=== PATIENT | male | born 1960 | race Two or more races ===

== ENCOUNTER 2023-08-14 01:28 | Emergency (ER) | payer MEDICARE, MEDICAID ==
[~2023-08-14] VITALS: Ht 162.6 cm; Wt 100.0 kg
[~2023-08-14 01:28] MED LIST: CLOP75TA70 PO; GABAPOW36 PO; KEPPRA PO; LIS20T GT; LORAPOW30 PO; MIRT1TAB38 PO; SIMVPOW2 PO; VALPROIC ACID PO
[2023-08-14 03:05] LABS: Urine Bacteria FEW /hpf (None Seen); Urine Blood 2+ /uL (Negative); Urine Clarity CLOUDY (Clear); Urine Color Yellow (Yellow); Urine Mucus FEW (None Seen); Urine Protein, UAD 1+ (Negative); Urine Specific Gravity 1.014 (1.001-1.035); Urine Urobilinogen Normal (Negative); Urine WBC 28 /hpf (0 - 3); Urine pH 7.5 (5.0-8.0)
[2023-08-14 04:19] LABS: Basophils # (auto) 0 10 ^3/uL (0-0.2); Basophils % (auto) 0.6 % (0.0-2.0); Eosinophils # (auto) 0 10 ^3/uL (0-0.8); Eosinophils % (auto) 0.4 % (0.0-7.0); Hematocrit 38.8 % (41.0-53.0); Hemoglobin 12.6 g/dL (13.5-17.5); Lymphocytes # (auto) 2.5 10 ^3/uL (0.4-5.4); Lymphocytes % (auto) 41.5 % (10.0-50.0); Mean Corpuscular Hemoglobin 31.2 pg (28.0-32.0); Mean Corpuscular Hgb Conc. 32.5 g/dL (32.0-36.0); Mean Corpuscular Volume 95.8 fL (80.0-100.0); Monocytes # (auto) 0.4 10 ^3/uL (0-1.3); Monocytes % (auto) 7.4 % (0.0-12.0); Neutrophils % (auto) 50.1 % (37.0-80.0); Nucleated Red Blood Cells % 1.2 %; Red Blood Cells 4.05 10^6/uL (4.5-5.90)
[2023-08-14 04:24] LABS: Red Cell Distribution Width 22.1 % (11.8-14.3)
[2023-08-14 04:30] LABS: Chloride 104 mmol/L (98-107); Potassium 3.9 mmol/L (3.5-5.1); Sodium 133 mmol/L (136-145)
[2023-08-14 04:31] LABS: Anion Gap 3 (5-15); Carbon Dioxide 26 mmol/L (20-30)
[2023-08-14 04:32] LABS: Calcium 9.5 mg/dL (8.7-10.4)
[2023-08-14 04:36] LABS: BUN/Creatinine Ratio 10.9 (10.0-20.0); Blood Urea Nitrogen 15 mg/dL (9-23); Glucose 171 mg/dL (74-106)
[2023-08-14 05:21] VITALS: TEMP 98.4
[2023-08-14 05:23] VITALS: PULSE 80; RESP 15; O2SAT 93
[2023-08-14 06:43] VITALS: BP 165/70; PULSE 83; RESP 16; O2SAT 98
== END 2023-08-14 07:00 | disposition home or self-care (01) ==
LOC: ER 01:28
DX: R41.0 Disorientation, unspecified (principal); M79.89 Other specified soft tissue disorders; F17.210 Nicotine dependence, cigarettes, uncomplicated; E11.9 Type 2 diabetes mellitus without complications; E78.5 Hyperlipidemia, unspecified; I10 Essential (primary) hypertension; Z86.73 Personal history of transient ischemic attack (TIA), and cerebral infarction without residual deficits; Z90.49 Acquired absence of other specified parts of digestive tract
CPT/HCPCS: 36415; 70450; 80048; 81001; 82140; 85025

== ENCOUNTER 2024-03-04 10:08 | Inpatient (IN) | payer MEDICARE, MEDICAID ==
[~2024-03-04] VITALS: Ht 172.7 cm; Wt 87.0 kg
[2024-03-04 10:50] VITALS: PULSE 92; RESP 20
[2024-03-04 11:22] LABS: Alkaline Phosphatase 138 U/L (46-116); Anion Gap 1 (5-15); Aspartate Aminotransferase 15 U/L (13-40); BUN/Creatinine Ratio 13.2 (10.0-20.0); Bilirubin, Total 0.2 mg/dL (0.2-1.0); Blood Urea Nitrogen 20 mg/dL (9-23); Calcium 8.7 mg/dL (8.7-10.4); Carbon Dioxide 24 mmol/L (20-30); Chloride 106 mmol/L (98-107); Glucose 107 mg/dL (74-106); Lipase 39 U/L (12-53); Potassium 3.9 mmol/L (3.5-5.1); Sodium 131 mmol/L (136-145)
[2024-03-04 11:30] LABS: Urine Bacteria MANY /hpf (None Seen); Urine Blood Negative /uL (Negative); Urine Clarity Turbid (Clear); Urine Color Light-Yellow (Yellow); Urine Hyaline Cast MOD /lpf (0 - 2); Urine Mucus FEW (None Seen); Urine Protein, UAD 2+ (Negative); Urine Specific Gravity 1.028 (1.001-1.035); Urine Urobilinogen Normal (Negative); Urine WBC 88 /hpf (0 - 3); Urine pH 5.5 (5.0-9.0)
[2024-03-04 11:34] LABS: Total Protein 12.5 g/dL (5.7-8.2)
[2024-03-04 11:36] LABS: Hematocrit 21.7 % (41.0-53.0); Mean Corpuscular Hemoglobin 24.5 pg (28.0-32.0); Mean Corpuscular Hgb Conc. 30.2 g/dL (32.0-36.0); Mean Corpuscular Volume 81.2 fL (80.0-100.0); Platelet Count (auto) 338 10^3/uL (140-450); Red Blood Cells 2.67 10^6/uL (4.5-5.90)
[2024-03-04 11:38] LABS: Alanine Aminotransferase < 9 U/L (7-40)
[2024-03-04 11:41] LABS: Red Cell Distribution Width 22.9 % (11.8-14.3)
[2024-03-04 11:42] LABS: Hemoglobin 6.5 g/dL (13.5-17.5)
[2024-03-04 11:43] LABS: Band Neutrophils % (manual) 0; Basophils % (manual) 0 (0.0-2.0); Blast Cells 0; Metamyelocytes % 0; Myelocytes % 0; Promyelocytes % 0; Reactive Lymphocytes 0
[2024-03-04 12:05] LABS: Eosinophils % (manual) 4 (0-7); Lymphocytes % (manual) 36 (10.0-50.0); Monocytes % (manual) 3 (0-12); Platelet Estimate Adequate
[2024-03-04 12:06] LABS: Anisocytosis Slight; Hypochromia Moderate; Rouleau Present
[2024-03-04 12:14] LABS: COVID19 ANTIGEN SOFIA FIA NEGATIVE (NEGATIVE)
[2024-03-04] MEDS: cefTRIAXone 1GM/50ML D5W 50 ML IV ONE (12:36)
[2024-03-04] MEDS: ONDANSETRON HCL 4 MG/2 ML VIAL IV ONE ×2 (14:16→20:42)
[2024-03-04] MEDS: MORPHINE SULFATE 4 MG/ML SYR/VIAL IV ONE ×2 (14:17→20:42)
[2024-03-04 20:07] VITALS: O2SAT 100
[2024-03-04 21:55] VITALS: BP 108/64; PULSE 88; RESP 16; TEMP 97.8
[2024-03-04 22:20] VITALS: BP 110/61; PULSE 94; RESP 14; TEMP 98.2
[2024-03-04] MEDS ORDERED: ONDANSETRON HCL 4 MG/2 ML VIAL IV PRN (23:15)
[2024-03-04] MEDS ORDERED: DOCUSATE SOD 100 MG CAP PO PRN (23:15)
[2024-03-04] MEDS ORDERED: ACETAMINOPHEN 325 MG TAB PO PRN (23:15)
[2024-03-05] VITALS (7 sets, daily range): BP systolic 81–164; BP diastolic 36–80; PULSE 77–110; RESP 14–19; TEMP 97.9–98.7; O2SAT 97–98
[2024-03-05] MEDS: LACTATED RINGER'S 1,000 ML IV ONE (00:30)
[2024-03-05] MEDS: SODIUM CHLOR 0.9% PF (SALINE LOCK) 10ML VIAL/SYR IV SCH (05:36)
[2024-03-05 07:39] LABS: Basophils # (auto) 0 10 ^3/uL (0-0.2); Eosinophils # (auto) 0.1 10 ^3/uL (0-0.8); Hemoglobin 8.6 g/dL (13.5-17.5); Monocytes # (auto) 0.5 10 ^3/uL (0-1.3); Monocytes % (auto) 6.9 % (0.0-12.0)
[2024-03-05 07:42] LABS: Basophils % (auto) 0.6 % (0.0-2.0); Eosinophils % (auto) 1.5 % (0.0-7.0); Hematocrit 26.4 % (41.0-53.0); Lymphocytes # (auto) 1.9 10 ^3/uL (0.4-5.4); Lymphocytes % (auto) 26.1 % (10.0-50.0); Mean Corpuscular Hemoglobin 26.4 pg (28.0-32.0); Mean Corpuscular Hgb Conc. 32.7 g/dL (32.0-36.0); Mean Corpuscular Volume 80.8 fL (80.0-100.0); Neutrophils # (auto) 4.8 10 ^3/uL (1.6-8.6); Neutrophils % (auto) 64.9 % (37.0-80.0); Nucleated Red Blood Cells % 0.4 %; Platelet Count (auto) 285 10^3/uL (140-450); Red Blood Cells 3.27 10^6/uL (4.5-5.90); Red Cell Distribution Width 19.9 % (11.8-14.3); White Blood Cell 7.5 10^3/uL (4.4-10.8)
[2024-03-05] MEDS: HYDROcodone-ACET 5/325MG TAB PO PRN (07:42)
[2024-03-05 07:55] LABS: Alanine Aminotransferase 10 U/L (7-40); Albumin 2.9 g/dL (3.2-4.8); Alkaline Phosphatase 135 U/L (46-116); Anion Gap 1 (5-15); Aspartate Aminotransferase 20 U/L (13-40); BUN/Creatinine Ratio 13.2 (10.0-20.0); Bilirubin, Total 0.2 mg/dL (0.2-1.0); Blood Urea Nitrogen 19 mg/dL (9-23); Calcium 8.6 mg/dL (8.7-10.4); Carbon Dioxide 24 mmol/L (20-30); Chloride 108 mmol/L (98-107); Glucose 109 mg/dL (74-106); Potassium 4.3 mmol/L (3.5-5.1); Sodium 133 mmol/L (136-145)
[2024-03-05 08:07] LABS: Total Protein 11.8 g/dL (5.7-8.2)
[2024-03-05] MEDS ORDERED: ENOXAPARIN SOD 40 MG/0.4 ML SYRINGE SC SCH (10:00)
[2024-03-05 10:39] LABS: % Iron Saturation 417.4 % (20-55)
[2024-03-05] MEDS: HYDROmorphone HCL 2 MG/ML VL/or syr IV PRN (11:25)
[2024-03-05] MEDS: cefTRIAXone 1GM/50ML D5W 50 ML IV ONE (12:49)
[2024-03-05] MEDS: LORazepam 2MG/ML-1ML VIAL IV SCH (14:22)
[2024-03-05] MEDS: levETIRAcetam 1000 mg/100ml 100 ML IV ONE (17:55)
[2024-03-05] MEDS: HALOPERIDOL LACTATE 5 MG/ML INJ VIAL IM ONE (19:45)
[2024-03-05] MEDS: LACTULOSE 20Gm/30ML SOLN PO ONE (21:09)
[2024-03-05] MEDS: LACTULOSE 20Gm/30ML SOLN PO SCH (22:00)
[2024-03-05 22:31] LABS: INR 1.34 (0.9-1.15); Partial Thromboplastin Time 26.8 SEC (24.5-34.5); Prothrombin Time 13.9 sec (9.3-11.8)
[2024-03-05] MEDS: FUROSEMIDE 20 MG/2 ML VIAL IV ONE (23:02)
[2024-03-05 23:45] LABS: Creatinine, Urine 143.37 mg/dL (30.0-125.0)
[2024-03-05 23:46] LABS: Amphetamine Screen, Urine Neg (NEGATIVE); Barbiturate Scree,Urine Neg (NEGATIVE); Benzodiazephine Screen, Urine Neg (NEGATIVE); Cannabinoid Screen, Urine Neg (NEGATIVE); Cocaine Screen, Urine Neg (NEGATIVE); Opiate Scree,Urine Pos (NEGATIVE); Phencyclidine Screen, Urine Neg (NEGATIVE)
[2024-03-05] MEDS: LORazepam 2MG/ML-1ML VIAL IV PRN (23:56)
[2024-03-06 00:41] VITALS: BP 164/80; PULSE 110; RESP 19; TEMP 98.1; O2SAT 97
[2024-03-06] MEDS ORDERED: CIPR500T4 PO (02:59)
[2024-03-06] MEDS ORDERED: PANT40TA2 PO (02:59)
[2024-03-06] MEDS ORDERED: LISI20TA56 PO (02:59)
[2024-03-06] MEDS ORDERED: LEVE500T3 PO (02:59)
[2024-03-06] MEDS ORDERED: INSU1INJ19 SC (02:59)
[2024-03-06] MEDS ORDERED: SUCR1TAB31 PO (02:59)
[2024-03-06] MEDS ORDERED: DIVA500T13 PO (02:59)
[2024-03-06] MEDS ORDERED: CEPH500C PO (02:59)
[2024-03-06] MEDS ORDERED: TAMS0.4C39 PO (02:59)
[2024-03-06] MEDS ORDERED: ATOR-507 PO (02:59)
[2024-03-06] MEDS ORDERED: GABA-1250 PO (02:59)
[2024-03-06] MEDS ORDERED: MIRT1TAB16 PO (02:59)
[2024-03-06] MEDS ORDERED: DOCU-265 PO (02:59)
[2024-03-06] MEDS ORDERED: LORA-1123 PO (02:59)
[2024-03-06 05:00] VITALS: BP 158/85; PULSE 119; RESP 19; TEMP 98.5; O2SAT 96
[2024-03-06] MEDS: PANTOPRAZOLE 40 MG TAB PO SCH (05:30)
[2024-03-06 06:49] LABS: Eosinophils # (auto) 0.1 10 ^3/uL (0-0.8); Hemoglobin 8.7 g/dL (13.5-17.5)
[2024-03-06 06:53] LABS: Basophils # (auto) 0.1 10 ^3/uL (0-0.2); Basophils % (auto) 0.8 % (0.0-2.0); Eosinophils % (auto) 1.5 % (0.0-7.0); Hematocrit 26.3 % (41.0-53.0); Lymphocytes # (auto) 1.7 10 ^3/uL (0.4-5.4); Lymphocytes % (auto) 20.6 % (10.0-50.0); Mean Corpuscular Hemoglobin 26.3 pg (28.0-32.0); Mean Corpuscular Hgb Conc. 32.9 g/dL (32.0-36.0); Mean Corpuscular Volume 79.9 fL (80.0-100.0); Monocytes # (auto) 0.5 10 ^3/uL (0-1.3); Monocytes % (auto) 6.5 % (0.0-12.0); Neutrophils # (auto) 5.8 10 ^3/uL (1.6-8.6); Neutrophils % (auto) 70.6 % (37.0-80.0); Nucleated Red Blood Cells % 0.5 %; Platelet Count (auto) 308 10^3/uL (140-450); White Blood Cell 8.3 10^3/uL (4.4-10.8)
[2024-03-06 06:56] LABS: Red Cell Distribution Width 20.2 % (11.8-14.3)
[2024-03-06 08:00] VITALS: PULSE 109; PULSE 96; RESP 19; O2SAT 96
[2024-03-06] MEDS: FUROSEMIDE 20 MG/2 ML VIAL IV SCH (08:47)
[2024-03-06] MEDS: cefTRIAXone 1GM/50ML D5W 50 ML IV SCH (08:47)
[2024-03-06 09:00] VITALS: BP 131/75; PULSE 109; RESP 19; TEMP 98.6; O2SAT 96
[2024-03-06] MEDS: levETIRAcetam 1000 mg/100ml 100 ML IV SCH (09:06)
[2024-03-06] MEDS ORDERED: LACTULOSE 20Gm/30ML SOLN PO PRN (10:00)
[2024-03-06] MEDS: HALOPERIDOL LACTATE 5 MG/ML INJ VIAL IM PRN (13:28)
[2024-03-06 15:24] LABS: Alanine Aminotransferase 12 U/L (7-40); Albumin 3.1 g/dL (3.2-4.8); Alkaline Phosphatase 156 U/L (46-116); Anion Gap 5 (5-15); Aspartate Aminotransferase 25 U/L (13-40); BUN/Creatinine Ratio 8.8 (10.0-20.0); Blood Urea Nitrogen 13 mg/dL (9-23); Calcium 9.3 mg/dL (8.7-10.4); Carbon Dioxide 22 mmol/L (20-30); Chloride 103 mmol/L (98-107); Glucose 178 mg/dL (74-106); Magnesium 1.6 mg/dL (1.6-2.6); Potassium 3.6 mmol/L (3.5-5.1); Sodium 130 mmol/L (136-145)
[2024-03-06 15:25] LABS: Bilirubin, Total 0.2 mg/dL (0.2-1.0); Total Protein > 12.0 g/dL (5.7-8.2)
[2024-03-06 16:00] VITALS: BP 150/78; PULSE 96; RESP 22; TEMP 98.5; O2SAT 100
[2024-03-06 20:00] VITALS: PULSE 104
[2024-03-06] MEDS: DexAMETHasone SOD PHOS 4 MG/1ML SDV INJ IV SCH (22:12)
[2024-03-07] VITALS (8 sets, daily range): BP systolic 118–178; BP diastolic 66–88; PULSE 96–121; RESP 18–24; TEMP 97.7–98.7; O2SAT 97–100
[2024-03-07] MEDS: hydrALAZINE HCL 20 MG/ML VL IV ONE (05:40)
[2024-03-07] MEDS: LACTULOSE 10g/15ml SOLN 473ML PR SCH (06:00)
[2024-03-07 08:01] LABS: Basophils # (auto) 0 10 ^3/uL (0-0.2); Basophils % (auto) 0.3 % (0.0-2.0); Eosinophils # (auto) 0 10 ^3/uL (0-0.8); Hemoglobin 9.3 g/dL (13.5-17.5); Lymphocytes # (auto) 1.1 10 ^3/uL (0.4-5.4); Lymphocytes % (auto) 11.9 % (10.0-50.0); Mean Corpuscular Hemoglobin 26.7 pg (28.0-32.0); Mean Corpuscular Hgb Conc. 33.3 g/dL (32.0-36.0); Mean Corpuscular Volume 80.4 fL (80.0-100.0); Monocytes # (auto) 0.2 10 ^3/uL (0-1.3); Monocytes % (auto) 2.7 % (0.0-12.0); Neutrophils # (auto) 7.6 10 ^3/uL (1.6-8.6); Neutrophils % (auto) 85.1 % (37.0-80.0); Nucleated Red Blood Cells % 0.3 %; Platelet Count (auto) 293 10^3/uL (140-450); Red Blood Cells 3.48 10^6/uL (4.5-5.90); Red Cell Distribution Width 20.1 % (11.8-14.3); White Blood Cell 8.9 10^3/uL (4.4-10.8)
[2024-03-07 08:16] LABS: Alanine Aminotransferase 19 U/L (7-40); Albumin 3.1 g/dL (3.2-4.8); Alkaline Phosphatase 185 U/L (46-116); Anion Gap 5 (5-15); Aspartate Aminotransferase 39 U/L (13-40); BUN/Creatinine Ratio 12.1 (10.0-20.0); Blood Urea Nitrogen 16 mg/dL (9-23); Calcium 9.2 mg/dL (8.7-10.4); Carbon Dioxide 22 mmol/L (20-30); Chloride 104 mmol/L (98-107); Glucose 128 mg/dL (74-106); Sodium 131 mmol/L (136-145)
[2024-03-07 08:17] LABS: Bilirubin, Total 0.2 mg/dL (0.2-1.0)
[2024-03-07 08:31] LABS: Total Protein 13.4 g/dL (5.7-8.2)
[2024-03-07] MEDS: HALOPERIDOL LACTATE 5 MG/ML INJ VIAL IM PRN (12:19)
[2024-03-07] MEDS: IOHEXOL 350 MG/ML 100ML IJ ONE (14:56)
[2024-03-08] VITALS (8 sets, daily range): BP systolic 124–183; BP diastolic 73–110; PULSE 82–111; RESP 17–20; TEMP 97.5–98.6; O2SAT 95–100
[2024-03-08 07:45] LABS: Creatinine, Urine 230.59 mg/dL (30.0-125.0); Urine Bacteria FEW /hpf (None Seen); Urine Blood 3+ /uL (Negative); Urine Budding Yeast OCCASIONAL /hpf (None Seen); Urine Clarity Turbid (Clear); Urine Color Yellow (Yellow); Urine Mucus FEW (None Seen); Urine Protein, UAD 3+ (Negative); Urine Urobilinogen Normal (Negative); Urine WBC 9 /hpf (0 - 3); Urine pH 5.5 (5.0-9.0)
[2024-03-08 07:48] LABS: Protein, Urine 1598.7 mg/dL (0.0-11.9); Urine Protein/Creatinine Ratio 6.93
[2024-03-08 07:50] LABS: Urine Specific Gravity > 1.050 (1.001-1.035)
[2024-03-08 09:45] LABS: Hepatitis B Surface Antigen Negative (Negative)
[2024-03-08 10:07] LABS: Hepatitis B Core IgM Negative
[2024-03-08 10:13] LABS: Hepatitis B Surface Antigen Negative (Negative)
[2024-03-08 10:32] LABS: Basophils # (auto) 0 10 ^3/uL (0-0.2); Basophils % (auto) 0.1 % (0.0-2.0); Eosinophils # (auto) 0 10 ^3/uL (0-0.8); Lymphocytes # (auto) 0.8 10 ^3/uL (0.4-5.4); Monocytes # (auto) 0.5 10 ^3/uL (0-1.3)
[2024-03-08 10:34] LABS: Hepatitis C Antibody Negative (Negative)
[2024-03-08 10:34] LABS: Hemoglobin 8.9 g/dL (13.5-17.5); Lymphocytes % (auto) 7.9 % (10.0-50.0); Mean Corpuscular Hemoglobin 26.4 pg (28.0-32.0); Mean Corpuscular Hgb Conc. 32.9 g/dL (32.0-36.0); Mean Corpuscular Volume 80.2 fL (80.0-100.0); Monocytes % (auto) 4.2 % (0.0-12.0); Neutrophils # (auto) 9.4 10 ^3/uL (1.6-8.6); Neutrophils % (auto) 87.8 % (37.0-80.0); Nucleated Red Blood Cells % 0.3 %; Platelet Count (auto) 305 10^3/uL (140-450); Red Blood Cells 3.37 10^6/uL (4.5-5.90); White Blood Cell 10.7 10^3/uL (4.4-10.8)
[2024-03-08 10:36] LABS: Red Cell Distribution Width 20.1 % (11.8-14.3)
[2024-03-08 10:37] LABS: Alanine Aminotransferase 25 U/L (7-40); Albumin 3.1 g/dL (3.2-4.8); Alkaline Phosphatase 167 U/L (46-116); Anion Gap 2 (5-15); Aspartate Aminotransferase 39 U/L (13-40); Blood Urea Nitrogen 22 mg/dL (9-23); Calcium 9.6 mg/dL (8.7-10.4); Carbon Dioxide 23 mmol/L (20-30); Chloride 108 mmol/L (98-107); Glucose 191 mg/dL (74-106); Potassium 3.3 mmol/L (3.5-5.1); Sodium 133 mmol/L (136-145)
[2024-03-08 10:49] LABS: Total Protein 13.6 g/dL (5.7-8.2)
[2024-03-08 10:55] LABS: Bilirubin, Total < 0.2 mg/dL (0.2-1.0)
[2024-03-08] MEDS: POTASSIUM CHL 20MEQ/100ML 100 ML IV SCH (16:25)
[2024-03-08] MEDS: OCTREOTIDE ACETATE 100 MCG/ML VL SUBCUT SCH (22:26)
[2024-03-09] VITALS (9 sets, daily range): BP systolic 122–192; BP diastolic 62–110; PULSE 70–91; RESP 16–20; TEMP 97.4–98.6; O2SAT 93–97
[2024-03-09 08:06] LABS: Immunoglobulin A 50 mg/dL (61-437); Immunoglobulin G, Serum 11694 mg/dL (603-1613); Immunoglobulin M 24 mg/dL (20-172)
[2024-03-09 10:28] LABS: Basophils # (auto) 0 10 ^3/uL (0-0.2); Eosinophils # (auto) 0 10 ^3/uL (0-0.8); Monocytes # (auto) 0.5 10 ^3/uL (0-1.3); White Blood Cell 6.9 10^3/uL (4.4-10.8)
[2024-03-09 10:31] LABS: Basophils % (auto) 0.2 % (0.0-2.0); Hemoglobin 8.4 g/dL (13.5-17.5); Lymphocytes # (auto) 0.9 10 ^3/uL (0.4-5.4); Lymphocytes % (auto) 12.9 % (10.0-50.0); Mean Corpuscular Hemoglobin 26.4 pg (28.0-32.0); Mean Corpuscular Hgb Conc. 32.1 g/dL (32.0-36.0); Mean Corpuscular Volume 82.3 fL (80.0-100.0); Monocytes % (auto) 6.9 % (0.0-12.0); Neutrophils # (auto) 5.5 10 ^3/uL (1.6-8.6); Platelet Count (auto) 286 10^3/uL (140-450); Red Blood Cells 3.16 10^6/uL (4.5-5.90); Red Cell Distribution Width 20.9 % (11.8-14.3)
[2024-03-09] MEDS: PANTOPRAZOLE 40 MG/10 ML VIAL INJ IV SCH (11:11)
[2024-03-09] MEDS: NICOTINE 21MG/24 HR TOPICAL PATCH TD ONE (13:15)
[2024-03-09 13:30] LABS: Alanine Aminotransferase 23 U/L (7-40); Albumin 3.1 g/dL (3.2-4.8); Alkaline Phosphatase 147 U/L (46-116); Anion Gap 3 (5-15); Aspartate Aminotransferase 26 U/L (13-40); BUN/Creatinine Ratio 11.9 (10.0-20.0); Calcium 8.9 mg/dL (8.7-10.4); Carbon Dioxide 22 mmol/L (20-30); Chloride 114 mmol/L (98-107); Glucose 211 mg/dL (74-106); Potassium 3.8 mmol/L (3.5-5.1); Sodium 139 mmol/L (136-145)
[2024-03-09 13:31] LABS: Bilirubin, Total < 0.2 mg/dL (0.2-1.0)
[2024-03-09 13:32] LABS: Blood Urea Nitrogen 36 mg/dL (9-23)
[2024-03-09] MEDS: LACTULOSE 20Gm/30ML SOLN PO SCH (14:00)
[2024-03-09 14:06] LABS: Kappa Lite Chain Free Serum 11.8 mg/L (3.3-19.4)
[2024-03-09] MEDS: cloNIDine HCL 0.1 MG TAB PO PRN (15:09)
[2024-03-09 16:06] LABS: Albumin 3.1 g/dL (2.9-4.4); Alpha-1-Globulin 0.5 g/dL (0.0-0.4); Alpha-2-Globulin 1.1 g/dL (0.4-1.0); Gamma Globulin 7.3 g/dL (0.4-1.8); Globulin Total 10.3 g/dL (2.2-3.9); Protein Total Serum 13.4 g/dL (6.0-8.5)
[2024-03-09] MEDS ORDERED: CLINIMIX PER PHARMACY 0 ML IV SCH (21:15)
[2024-03-09] MEDS: AMINO ACID INFUSION IN D10W 1,000 ML IV ONE (22:23)
[2024-03-10] VITALS (8 sets, daily range): BP systolic 136–175; BP diastolic 72–84; PULSE 64–75; RESP 16–22; TEMP 97.7–98.3; O2SAT 94–98
[2024-03-10 06:54] LABS: Urine Bacteria None Seen /hpf (None Seen)
[2024-03-10 07:15] LABS: Alanine Aminotransferase 17 U/L (7-40); Alkaline Phosphatase 130 U/L (46-116); Anion Gap 5 (5-15); BUN/Creatinine Ratio 14.7 (10.0-20.0); Calcium 8.7 mg/dL (8.7-10.4); Carbon Dioxide 21 mmol/L (20-30); Chloride 112 mmol/L (98-107); Glucose 160 mg/dL (74-106); Magnesium 2.1 mg/dL (1.6-2.6); Potassium 3.8 mmol/L (3.5-5.1); Sodium 138 mmol/L (136-145)
[2024-03-10 07:16] LABS: Aspartate Aminotransferase 20 U/L (13-40); Phosphorus 4.9 mg/dL (2.4-5.1)
[2024-03-10 07:17] LABS: Bilirubin, Total < 0.2 mg/dL (0.2-1.0)
[2024-03-10 07:27] LABS: Blood Urea Nitrogen 46 mg/dL (9-23)
[2024-03-10 07:29] LABS: Total Protein 13.1 g/dL (5.7-8.2)
[2024-03-10 08:13] LABS: Urine Blood 2+ /uL (Negative); Urine Clarity Turbid (Clear); Urine Color Light-Yellow (Yellow); Urine Protein, UAD 2+ (Negative); Urine Specific Gravity 1.027 (1.001-1.035); Urine Urobilinogen Normal (Negative); Urine WBC 13 /hpf (0 - 3); Urine pH 5.5 (5.0-9.0)
[2024-03-10 08:41] LABS: Creatinine, Urine 142.29 mg/dL (30.0-125.0)
[2024-03-10 08:50] LABS: Triglycerides 65 mg/dL (< 150)
[2024-03-10] MEDS ORDERED: DEXTROSE (50%) 50ML SYRG IV SCH (10:00)
[2024-03-10] MEDS: NICOTINE 21MG/24 HR TOPICAL PATCH TD SCH (10:00)
[2024-03-10] MEDS: ACCU-CHEK COMFORT CURVE STRIP VI SCH (12:31)
[2024-03-10] MEDS: InsuLIN REG 1unit/0.01ml Soln (100units/ml) SC SCH (13:23)
[2024-03-10] MEDS: AMINO ACID INFUSION IN D10W 1,000 ML IV SCH (21:36)
[2024-03-11] VITALS (7 sets, daily range): BP systolic 120–188; BP diastolic 67–84; PULSE 63–71; RESP 18–20; TEMP 97.2–98.4; O2SAT 96–98
[2024-03-11 05:26] LABS: Alanine Aminotransferase 22 U/L (7-40); Albumin 2.9 g/dL (3.2-4.8); Alkaline Phosphatase 117 U/L (46-116); Anion Gap 4 (5-15); Aspartate Aminotransferase 33 U/L (13-40); BUN/Creatinine Ratio 16.2 (10.0-20.0); Blood Urea Nitrogen 43 mg/dL (9-23); Calcium 8.7 mg/dL (8.7-10.4); Carbon Dioxide 20 mmol/L (20-30); Chloride 111 mmol/L (98-107); Glucose 136 mg/dL (74-106); Magnesium 1.9 mg/dL (1.6-2.6); Potassium 4.5 mmol/L (3.5-5.1); Sodium 135 mmol/L (136-145)
[2024-03-11 05:27] LABS: Bilirubin, Total < 0.2 mg/dL (0.2-1.0); Phosphorus 3.7 mg/dL (2.4-5.1)
[2024-03-11 06:02] LABS: Total Protein 12.8 g/dL (5.7-8.2)
[2024-03-11] MEDS ORDERED: HYDROcodone-ACET 5/325MG TAB PO PRN (12:45)
[2024-03-11] MEDS: hydrALAZINE HCL 20 MG/ML VL IV PRN (17:07)
[2024-03-12] VITALS (10 sets, daily range): BP systolic 132–197; BP diastolic 73–100; PULSE 60–80; RESP 17–19; TEMP 97.1–98.5; O2SAT 95–100
[2024-03-12] MEDS ORDERED: ALBUMIN 5% IV SCH (15:00)
[2024-03-12] MEDS: LIDOCAINE 2%HCL (LOCAL ANESTH.) INJ 20ML MDV ONE (15:34)
[2024-03-12 15:42] LABS: Alanine Aminotransferase 21 U/L (7-40); Albumin 2.9 g/dL (3.2-4.8); Alkaline Phosphatase 110 U/L (46-116); Anion Gap 1 (5-15); Aspartate Aminotransferase 28 U/L (13-40); BUN/Creatinine Ratio 21.5 (10.0-20.0); Blood Urea Nitrogen 37 mg/dL (9-23); Calcium 8.8 mg/dL (8.7-10.4); Carbon Dioxide 20 mmol/L (20-30); Chloride 107 mmol/L (98-107); Glucose 204 mg/dL (74-106); Potassium 3.8 mmol/L (3.5-5.1)
[2024-03-12 15:43] LABS: Bilirubin, Total < 0.2 mg/dL (0.2-1.0); Total Protein > 12.0 g/dL (5.7-8.2)
[2024-03-12 15:45] LABS: Sodium 128 mmol/L (136-145)
[2024-03-12] MEDS: HEPARIN SODIUM (PORCINE) 5000 UNITS/ML 1ML VIAL ONE (16:09)
[2024-03-12 16:44] LABS: Magnesium 1.6 mg/dL (1.6-2.6)
[2024-03-12 16:46] LABS: Phosphorus 2.9 mg/dL (2.4-5.1)
[2024-03-12] MEDS: CALCIUM GLUC 1,000mg/50ml-NS 50 ML IV SCH (17:17)
[2024-03-13] VITALS (8 sets, daily range): BP systolic 126–178; BP diastolic 61–92; PULSE 68–96; RESP 17–23; TEMP 97.7–98.9; O2SAT 96–99
[2024-03-13 06:49] LABS: Basophils # (auto) 0 10 ^3/uL (0-0.2); Eosinophils # (auto) 0 10 ^3/uL (0-0.8)
[2024-03-13 06:54] LABS: Basophils % (auto) 0.2 % (0.0-2.0); Hematocrit 26.1 % (41.0-53.0); Hemoglobin 8.4 g/dL (13.5-17.5); Lymphocytes # (auto) 1.7 10 ^3/uL (0.4-5.4); Lymphocytes % (auto) 16.2 % (10.0-50.0); Mean Corpuscular Hemoglobin 25.6 pg (28.0-32.0); Mean Corpuscular Hgb Conc. 32.2 g/dL (32.0-36.0); Mean Corpuscular Volume 79.7 fL (80.0-100.0); Monocytes # (auto) 0.4 10 ^3/uL (0-1.3); Monocytes % (auto) 4.3 % (0.0-12.0); Neutrophils # (auto) 8.2 10 ^3/uL (1.6-8.6); Neutrophils % (auto) 79.3 % (37.0-80.0); Nucleated Red Blood Cells % 0.4 %; Platelet Count (auto) 234 10^3/uL (140-450); Red Blood Cells 3.27 10^6/uL (4.5-5.90); Red Cell Distribution Width 20.2 % (11.8-14.3); White Blood Cell 10.3 10^3/uL (4.4-10.8)
[2024-03-13 07:01] LABS: Alanine Aminotransferase 26 U/L (7-40); Alkaline Phosphatase 118 U/L (46-116); Anion Gap 3 (5-15); Aspartate Aminotransferase 30 U/L (13-40); BUN/Creatinine Ratio 24.8 (10.0-20.0); Blood Urea Nitrogen 37 mg/dL (9-23); Carbon Dioxide 20 mmol/L (20-30); Chloride 106 mmol/L (98-107); GFR African American 61 mL/min; GFR Non-African American 50 mL/min; Glucose 179 mg/dL (74-106); Magnesium 1.4 mg/dL (1.6-2.6); Phosphorus 3.7 mg/dL (2.4-5.1); Potassium 3.9 mmol/L (3.5-5.1); Sodium 129 mmol/L (136-145)
[2024-03-13 07:02] LABS: Bilirubin, Total < 0.2 mg/dL (0.2-1.0); Total Protein > 12.0 g/dL (5.7-8.2)
[2024-03-13 07:36] LABS: COVID19 ANTIGEN SOFIA FIA NEGATIVE (NEGATIVE)
[2024-03-13] MEDS: MAGNESIUM SULFATE 1GM/100ML 100 ML IV SCH (12:48)
[2024-03-13 14:06] LABS: Viscosity Serum 5.2 rel.saline (1.4-2.1)
[2024-03-13] MEDS: ALBUMIN 5% IV SCH (17:00)
[2024-03-13] MEDS: CALCIUM GLUC 1,000mg/50ml-NS 50 ML IV SCH (18:00)
[2024-03-14] VITALS (8 sets, daily range): BP systolic 127–158; BP diastolic 56–75; PULSE 71–84; RESP 16–19; TEMP 96.8–97.9; O2SAT 95–99
[2024-03-14 07:14] LABS: Alanine Aminotransferase 16 U/L (7-40); Albumin 3.6 g/dL (3.2-4.8); Alkaline Phosphatase 69 U/L (46-116); Anion Gap 4 (5-15); Aspartate Aminotransferase 10 U/L (13-40); BUN/Creatinine Ratio 21.8 (10.0-20.0); Bilirubin, Total 0.3 mg/dL (0.2-1.0); Calcium 9.5 mg/dL (8.7-10.4); Carbon Dioxide 20 mmol/L (20-30); Chloride 110 mmol/L (98-107); Glucose 167 mg/dL (74-106); Magnesium 1.5 mg/dL (1.6-2.6); Phosphorus 3.4 mg/dL (2.4-5.1); Potassium 3.9 mmol/L (3.5-5.1); Total Protein 9.5 g/dL (5.7-8.2)
[2024-03-14 07:15] LABS: Blood Urea Nitrogen 26 mg/dL (9-23); Sodium 134 mmol/L (136-145)
[2024-03-14] MEDS: CALCIUM GLUC 1,000mg/50ml-NS 50 ML IV ONE (10:45)
[2024-03-14] MEDS: ALBUMIN 5% IV ONE (12:00)
[2024-03-14] MEDS: MAGNESIUM SULFATE 1GM/100ML 100 ML IV SCH (17:20)
[2024-03-14] MEDS: traMADol HCL 50 MG TAB PO ONE (23:39)
[2024-03-15] VITALS (9 sets, daily range): BP systolic 125–149; BP diastolic 60–81; PULSE 61–88; RESP 16–18; TEMP 97.6–98.7; O2SAT 96–99
[2024-03-15 06:34] LABS: Alkaline Phosphatase 67 U/L (46-116); Anion Gap 6 (5-15); Aspartate Aminotransferase 10 U/L (13-40); BUN/Creatinine Ratio 17.1 (10.0-20.0); Blood Urea Nitrogen 19 mg/dL (9-23); Calcium 10.1 mg/dL (8.7-10.4); Carbon Dioxide 17 mmol/L (20-30); Chloride 112 mmol/L (98-107); Glucose 204 mg/dL (74-106); Magnesium 1.7 mg/dL (1.6-2.6); Phosphorus 3.1 mg/dL (2.4-5.1); Potassium 3.9 mmol/L (3.5-5.1); Sodium 135 mmol/L (136-145)
[2024-03-15 06:35] LABS: Alanine Aminotransferase < 9 U/L (7-40); Bilirubin, Total 0.3 mg/dL (0.2-1.0); Total Protein 8.9 g/dL (5.7-8.2)
[2024-03-15] MEDS: traMADol HCL 50 MG TAB PO PRN (14:52)
[2024-03-16] VITALS (9 sets, daily range): BP systolic 98–147; BP diastolic 55–90; PULSE 72–86; RESP 14–19; TEMP 97.3–98.2; O2SAT 97–100
[2024-03-16 10:00] LABS: Calcium 9.6 mg/dL (8.7-10.4)
[2024-03-16 10:05] LABS: BUN/Creatinine Ratio 22.6 (10.0-20.0)
[2024-03-16 10:06] LABS: Magnesium 1.4 mg/dL (1.6-2.6)
[2024-03-16 10:07] LABS: Albumin 3.5 g/dL (3.2-4.8)
[2024-03-16] MEDS: MIDAZOLAM HCL 2MG/2ML 2ml VIAL (1mg/ml) IV ONE (14:55)
[2024-03-16] MEDS: LIDOCAINE 2%HCL (LOCAL ANESTH.) INJ 10ml MDV ONE (14:55)
[2024-03-16] MEDS: fentaNYL CITRATE 100 MCG/2 ML VL IV ONE (14:55)
[2024-03-16] MEDS: MAGNESIUM SULFATE 1GM/100ML 100 ML IV SCH ×2 (17:54→19:32)
== END 2024-03-16 23:00 | disposition short-term general hospital (02) | DRG 720 ==
LOC: EDBD 10:08 → ER 10:12 → TELE 23:18 → TELE-WESTW 03-05 22:50
PROVIDERS: ADMIT Internal Medicine; ATTEND Family Medicine
PROC: 30233N1 Transfusion of Nonautologous Red Blood Cells into Peripheral Vein, Percutaneous Approach (ICD-10-PCS; principal; 2024-03-04)
PROC: 0JH63XZ Insertion of Tunneled Vascular Access Device into Chest Subcutaneous Tissue and Fascia, Percutaneous Approach (ICD-10-PCS; 2024-03-12)
PROC: 02HV33Z Insertion of Infusion Device into Superior Vena Cava, Percutaneous Approach (ICD-10-PCS; 2024-03-12)
PROC: B5181ZA Fluoroscopy of Superior Vena Cava using Low Osmolar Contrast, Guidance (ICD-10-PCS; 2024-03-12)
PROC: B548ZZA Ultrasonography of Superior Vena Cava, Guidance (ICD-10-PCS; 2024-03-12)
PROC: 07DR3ZX Extraction of Iliac Bone Marrow, Percutaneous Approach, Diagnostic (ICD-10-PCS; 2024-03-16)
PROC: 079T3ZX Drainage of Bone Marrow, Percutaneous Approach, Diagnostic (ICD-10-PCS; 2024-03-16)
DX: A41.51 Sepsis due to Escherichia coli [E. coli] (principal); G92.8 Other toxic encephalopathy; E43 Unspecified severe protein-calorie malnutrition; E87.20 Acidosis, unspecified; N17.9 Acute kidney failure, unspecified; E72.20 Disorder of urea cycle metabolism, unspecified; C90.00 Multiple myeloma not having achieved remission; F02.80 Dementia in other diseases classified elsewhere, unspecified severity, without behavioral disturbance, psychotic disturbance, mood disturbance, and anxiety; E87.1 Hypo-osmolality and hyponatremia; D62 Acute posthemorrhagic anemia; N30.00 Acute cystitis without hematuria; I12.9 Hypertensive chronic kidney disease with stage 1 through stage 4 chronic kidney disease, or unspecified chronic kidney disease; N18.31 Chronic kidney disease, stage 3a; N40.0 Benign prostatic hyperplasia without lower urinary tract symptoms; E78.00 Pure hypercholesterolemia, unspecified; M48.56XA Collapsed vertebra, not elsewhere classified, lumbar region, initial encounter for fracture; Z20.822 Contact with and (suspected) exposure to COVID-19; G89.29 Other chronic pain; F17.210 Nicotine dependence, cigarettes, uncomplicated; R77.1 Abnormality of globulin; K57.30 Diverticulosis of large intestine without perforation or abscess without bleeding; G40.909 Epilepsy, unspecified, not intractable, without status epilepticus; Z86.73 Personal history of transient ischemic attack (TIA), and cerebral infarction without residual deficits; Z90.49 Acquired absence of other specified parts of digestive tract; Z82.3 Family history of stroke; Z87.11 Personal history of peptic ulcer disease; Z83.3 Family history of diabetes mellitus; Z82.49 Family history of ischemic heart disease and other diseases of the circulatory system; Z80.6 Family history of leukemia; Z88.5 Allergy status to narcotic agent; Z88.6 Allergy status to analgesic agent; Z68.29 Body mass index [BMI] 29.0-29.9, adult; B96.20 Unspecified Escherichia coli [E. coli] as the cause of diseases classified elsewhere
CPT/HCPCS: 10005; 36415; 36558; 36600; 70450; 70496; 70551; 71045; 72192; 74176; 76604; 76705; 76775; 77001; 77012; 77074; 80053; 80069; 80307; 80320; 81001; 82140; 82270; 82306; 82570; 82607; 82728; 82746; 82784; 82805; 82962; 83036; 83521; 83540; 83550; 83605; 83615; 83690; 83735; 83880; 83935; 83970; 84100; 84155; 84156; 84165; 84300; 84478; 84484; 85007; 85025; 85027; 85384; 85610; 85730; 86334; 86335; 86703; 86705; 86803; 86850; 86900; 86901; 86920; 87040; 87081; 87086; 87088; 87186; 87340; 87426; 92610; 93005; 96365; 96375; 99152; G0378; J1100; J1815; J2001; J2250; J2405; J2470; J3480